=== PATIENT | male | born 1965 | race Caucasian/White ===

== ENCOUNTER 2021-05-13 01:43 | Observation (INO) ==
[2021-05-13] MEDS ORDERED: Ondansetron 4 MG/2 ML VIAL IVP PRN (09:20)
[2021-05-13] MEDS ORDERED: Melatonin 3 MG TABLET PO PRN (09:20)
[2021-05-13] MEDS ORDERED: Naloxone 0.4 MG/ML INJ IVP PRN (09:20)
[2021-05-13] MEDS: 0.9 % Sodium Chloride 1,000 ML IVC SCH ×2 (09:46→22:00)
[2021-05-13 10:51] LABS: Basophils % 0.1 %; Hematocrit 50.8 % (37.5-50.1); Hemoglobin 17.3 g/dL (12.9-16.9); Immature Granulocytes % 0.6 % (0-4); Lymphocytes # 0.7 K/mcL (0.6-4.6); Lymphocytes % 5.3 %; Mean Corpuscular HGB Conc 34.1 g/dL (31.6-35.5); Mean Corpuscular Hemoglobin 31.2 pg (28.0-33.3); Mean Corpuscular Volume 91.7 fL (83.0-100.0); Mean Platelet Volume 10.4 fL (9.4-12.4); Monocytes # 0.5 K/mcL (0.0-1.3); Monocytes % 4.1 %; Platelet Count 299 K/mcL (140-400); Red Blood Count 5.54 M/mcL (4.19-5.50); Red Cell Distribution Width 13.1 % (11.5-14.5); Segmented Neutrophils % 89.9 %; White Blood Count 12.2 K/mcL (4.3-11.1)
[2021-05-13] MEDS: Aspirin 81 MG TAB.CHEW PO SCH (10:51)
[2021-05-13 11:01] LABS: INR 1.1; Prothrombin Time 12.1 Seconds (9.4-12.1)
[2021-05-13 15:12] LABS: Albumin 3.6 g/dL (3.5-5.7); Albumin/Globulin Ratio 1.6 (1.1-2.2); Bilirubin,Total 0.3 mg/dL (0.3-1.0); Calcium 8.4 mg/dL (8.6-10.3); Globulin 2.3 g/dL (2.4-3.5); Potassium 5.7 mEq/L (3.5-5.1); Total Protein 5.9 g/dL (6.4-8.9); Troponin I 0.07 ng/mL (< 0.04)
[2021-05-13] MEDS ORDERED: *HR* OxyCODONE/APAP 5/325 TABLET PO PRN (18:43)
[2021-05-13] MEDS ORDERED: Gabapentin 400 MG CAPSULE PO PRN (18:43)
[2021-05-13] MEDS: Nicotine 21 MG PATCH.TD24 TD SCH (20:47)
[2021-05-14 02:16] LABS: Eosinophils % 0.2 %; Hematocrit 42.2 % (37.5-50.1); Immature Granulocytes % 0.4 % (0-4); Lymphocytes # 1.8 K/mcL (0.6-4.6); Lymphocytes % 15.7 %; Mean Corpuscular HGB Conc 33.6 g/dL (31.6-35.5); Mean Corpuscular Hemoglobin 31.1 pg (28.0-33.3); Mean Corpuscular Volume 92.3 fL (83.0-100.0); Monocytes # 0.9 K/mcL (0.0-1.3); Monocytes % 7.3 %; Neutrophils # 8.8 K/mcL (1.6-8.9); Platelet Count 239 K/mcL (140-400); Red Blood Count 4.57 M/mcL (4.19-5.50); Segmented Neutrophils % 76.4 %; White Blood Count 11.6 K/mcL (4.3-11.1)
[2021-05-14 02:26] LABS: Hemoglobin 14.2 g/dL (12.9-16.9)
[2021-05-14 02:29] LABS: Alanine Aminotransferase 11 Units/L (7-52); Albumin 3.5 g/dL (3.5-5.7); Albumin/Globulin Ratio 1.6 (1.1-2.2); Alkaline Phosphatase 38 Units/L (34-104); Aspartate Amino Transferase 8 Units/L (13-39); BUN/Creatinine Ratio 26 (6-26); Bilirubin,Total 0.2 mg/dL (0.3-1.0); Blood Urea Nitrogen 23 mg/dL (6-20); Calcium 8.7 mg/dL (8.6-10.3); Carbon Dioxide 21 mEq/L (23-29); Chloride 108 mEq/L (98-107); Globulin 2.2 g/dL (2.4-3.5); Glucose 193 mg/dL (70-105); Osmolality,Calculated 291 (280-300); Potassium 4.2 mEq/L (3.5-5.1); Sodium 136 mEq/L (136-145); Total Protein 5.7 g/dL (6.4-8.9); eGFR For African Americans > 60 (> 60); eGFR For Non-African Americans > 60 (> 60)
[2021-05-14] MEDS ORDERED: *HR* Enoxaparin 40 MG/0.4 ML SYRINGE SQ SCH (06:00)
[2021-05-14 06:42] VITALS: BP 168/104; PULSE 101; TEMP 97.7; O2SAT 98
[2021-05-14] MEDS ORDERED: *HR* Labetalol 20 MG/4 ML SYRINGE IVP ONE (06:46)
[2021-05-14] MEDS: Nicotine 21 MG PATCH.TD24 TD SCH (08:44)
[2021-05-14] MEDS: Aspirin 81 MG TAB.CHEW PO SCH (08:57)
== END 2021-05-14 11:23 | disposition home or self-care (01) ==
LOC: 2ANU → SUATTDRO 08:31
PROVIDERS: ADMIT Hospitalist; ATTEND Internal Medicine